=== PATIENT | male | born 1950 | race Caucasian/White ===

== ENCOUNTER 2023-11-18 08:12 | Emergency (ER) | payer MEDICARE, SELFPAY ==
[2023-11-18 08:21] VITALS: BP 143/83; PULSE 80; RESP 18; TEMP 36.4; O2SAT 98
[2023-11-18 09:53] LABS: Appearance Urine Cloudy (Clear); Bacteria Urine None Seen /hpf; Bilirubin Urine Negative (Negative); Blood Urine 2+ (Negative); Color Urine Yellow (Yellow); Glucose Urine UA Negative (Negative); Ketones Urine Negative (Negative); Leukocyte Esterase Ur 2+ LEU/UL (Negative); Need Manual Microscopic Reviewed; Nitrate Urine Negative (Negative); Protein Urine 2+ mg/dL (Negative); RBC Urine 51-100 /hpf (0-2); Specific Grav Ur 1.014 (1.001-1.035); Squamous Epithelial Cell Urine None Seen /hpf (Few); WBC Urine >100 /hpf (0-3); pH Urine 7.5 (5.0-9.0)
[2023-11-18 09:54] LABS: Add Urine Microscopic? YES
--- NOTE | 2023-11-18 10:40 | ED.GENADULT ---
HPI - General Adult General Chief complaint: Urogenital-Male Stated complaint: trouble urinating Time Seen by Provider: 11/18/23 08:44 Source: patient Mode of arrival: ambulatory Limitations: no limitations History of Present Illness HPI narrative: 73-year-old with a history of BPH status post bladder sling surgery several years ago here with the complaints of urinary frequency and burning sensation since last night. No history of fever chills. Onset (ago): day(s) (1) Relieving factors: none Exacerbating factors: none Associated symptoms: denies other symptoms Related Data Allergies Allergy/AdvReac Type Severity Reaction Status Date / Time Penicillins Allergy Unknown Unknown Verified 11/18/23 08:27 Review of Systems Review of Systems: All systems reviewed & are unremarkable except as noted in HPI and below Constitutional: Constitutional: Reports no additional constitutional complaints Eyes: Eyes: Reports no additional eye complaints ENT: Reports system reviewed and no additional complaints, except as documented Cardiovascular: Cardiovascular: Reports no additional cardiovascular complaints Respiratory: Respiratory: Reports no additional respiratory complaints Gastrointestinal: Gastrointestinal: Reports no additional gastrointestinal complaints Genitourinary: Genitourinary: Reports as per HPI Exam Narrative: GENERAL: Well-appearing, well-nourished, and in no acute distress. HEAD: Normocephalic, atraumatic. EYES: PERRLA and EOMI. ENT: Nares clear, no rhinorrhea or epistaxis. Mucous membranes moist. NECK: Supple. CHEST: Clear to auscultation. No respiratory distress. HEART: Regular rate and rhythm. No murmur heard. Normal peripheral pulses. ABDOMEN: Soft, nontender, nondistended, normal active bowel sounds. EXTREMITIES: Normal range of motion. No edema. SKIN: Warm, dry, no rash. NEURO: No focal deficits. Alert and oriented x3. PSYCH: Normal mood and affect. Course Course Emergency Course: Notified patient and the family about his lab work. Recommended him to take antibiotics as prescribed drink plenty of fluids. Vital Signs Vital signs: Vital Signs Temperature 36.4 C L 11/18/23 08:21 Pulse Rate 80 11/18/23 08:21 Respiratory Rate 18 11/18/23 08:21 Blood Pressure 143/83 H 11/18/23 08:21 Pulse Oximetry 98 11/18/23 08:21 Oxygen Delivery Room Air 11/18/23 08:21 Temperature 36.4 C L 11/18/23 08:21 Pulse Rate 80 11/18/23 08:21 Respiratory Rate 18 11/18/23 08:21 Blood Pressure 143/83 H 11/18/23 08:21 Pulse Oximetry 98 11/18/23 08:21 Oxygen Delivery Room Air 11/18/23 08:21 Medical Decision Making Vital Signs Vital Signs: Vital Signs Temperature 36.4 C L 11/18/23 08:21 Pulse Rate 80 11/18/23 08:21 Respiratory Rate 18 11/18/23 08:21 Blood Pressure 143/83 H 11/18/23 08:21 Pulse Oximetry 98 11/18/23 08:21 Oxygen Delivery Room Air 11/18/23 08:21 Temperature 36.4 C L 11/18/23 08:21 Pulse Rate 80 11/18/23 08:21 Respiratory Rate 18 11/18/23 08:21 Blood Pressure 143/83 H 11/18/23 08:21 Pulse Oximetry 98 11/18/23 08:21 Oxygen Delivery Room Air 11/18/23 08:21 Lab Data Labs: Lab Results 11/18/23 Range/Units 09:27 Urine Color Yellow (Yellow) Urine Appearance Cloudy H (Clear) Urine pH 7.5 (5.0-9.0) Ur Specific [place] 1.014 (1.001-1.035) Urine Protein 2+ H (Negative) mg/dL Urine Glucose (UA) Negative (Negative) mg/dL Urine Ketones Negative (Negative) mg/dL Ur Blood (Man) 2+ H (Negative) Urine Nitrate Negative (Negative) Urine Bilirubin Negative (Negative) Urine Urobilinogen 1.0 (<2.0) mg/dL Add Ur Microanalysis Reviewed Leukocyte Esterase Rfl 2+ H (Negative) CHAS/UL Urine RBC 51-100 H (0-2) /hpf Urine WBC >100 H (0-3) /hpf Ur Squamous Epith Cells None seen (Few) /hpf Urine Bacteria None seen /hpf Urine Casts 6-10 Urine Characteristics Cloudy Discharge Plan Discharge Clinical Impression: Urinary tract infection Qualifiers: Urinary tract infection type: site unspecified Hematuria presence: without hematuria Qualified Code(s): N39.0 - Urinary tract infection, site not specified Patient Disposition: Home, Self-Care Condition: Stable Instructions: Urinary Tract Infection in Men (ED) Prescriptions: New cefadroxil 500 mg capsule 500 mg PO BID Qty: 14 0RF Follow-up/Referrals: PHYSICIAN NOT ON STAFF,NONSTAFF [Primary Care Provider] - Espinoza Baxter MD [Physician] - Time of Disposition: 10:43
[2023-11-18] MEDS: LIDOCAINE HCL 1% LOCAL INJ 10 ML VIAL (10:47)
[2023-11-18] MEDS: cefTRIAXone 1 GM VIAL IM (10:47)
[2023-11-18 10:57] VITALS: BP 139/78; PULSE 77; RESP 15; TEMP 36.4; O2SAT 97
== END 2023-11-18 10:59 | disposition home or self-care (01) ==
PROVIDERS: Emergency Provider Family Medicine
DX: N39.0 Urinary tract infection, site not specified (principal); N40.0 Benign prostatic hyperplasia without lower urinary tract symptoms
CPT/HCPCS: 81001; 87086; 87088; 96372; 99283; J0696